=== PATIENT | female | born 1995 | race Hispanic/Latino ===

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

== ENCOUNTER 2017-07-11 16:35 | Outpatient (CLI) | payer OTHER ==
[~2017-07-11] VITALS: Ht 152.4 cm; Wt 70.9 kg
[2017-07-11] MEDS ORDERED: PRENTAB9 PO (17:17)
[2017-07-11 18:05] LABS: MEAN CORPUSCULAR HEMOGLOBIN 31.5 pg (27.0-33.0); MEAN CORPUSCULAR HGB CONC 35.3 g/dl (32.0-36.5); MEAN CORPUSCULAR VOLUME 89.4 fl (80.0-96.0); PLATELET COUNT, AUTOMATED 192 10^3/uL (150-450); RED CELL DISTRIBUTION WIDTH 12.7 % (11.5-14.5)
[2017-07-11 18:32] LABS: INR 0.93
== END 2017-07-11 19:15 | disposition home or self-care (01) ==
LOC: M LDO 16:35
PROVIDERS: ATTEND Obstetrics & Gynecology
DX: O26.893 Other specified pregnancy related conditions, third trimester (principal); W18.31XA Fall on same level due to stepping on an object, initial encounter; Z3A.37 37 weeks gestation of pregnancy

== ENCOUNTER 2017-07-15 20:34 | Outpatient (CLI) | payer OTHER ==
[~2017-07-15] VITALS: Ht 152.4 cm; Wt 73.0 kg
[~2017-07-15 20:34] MED LIST: PRENTAB9 PO
[2017-07-15 20:50] VITALS: BP 110/66
--- NOTE | 2017-07-17 08:02 | HPE ---
DATE OF ADMISSION: 07/15/2017 This lady is 22-year-old, 1, para 0, last menstrual period (LMP) 10/17/2016, date is uncertain. Expected date of confinement (EDC) by ultrasound was 07/28/2017. She is at 38 weeks with decreased movement. LABORATORIES: O positive. HIV negative. RPR negative. Rubella immune. Varicella was positive. Urine was negative. Gonorrhea and chlamydia negative. 1-hour glucose 106. Urine is 1.010, pH 7, 50 blood. Temperature is 98.9, blood pressure 110/66, respirations 18 and pulse 111. There is a symphysis fundus height of 38. Four quadrant bowel sounds are noted. Category one strip with accelerations. No vaginal loss. No discharge. The rest of the examination is unremarkable. She is normocephalic, atraumatic. Neck full range of motion. Pupils equal and reactive to light. Distal pulses symmetric. No evidence of deep vein thrombosis (DVT), pulmonary embolus (PE) or superficial phlebitis. Lungs are clear bilaterally to bases. No wheezes or rhonchi. No costovertebral angle (CVA) tenderness. No rashes, lesions or pruritus. No arthralgia or myalgia. No complaints of cough, wheeze, shortness of breath or dyspnea on exertion. No chest pain. Not bleeding. Neuro complete. No frequency. No nausea, vomiting, diarrhea or constipation. No diabetic issues. No WIDTH STRIPPER past history, medical or surgical interventions. She is . No domestic violence. No alcohol. No tobacco. No recreational drugs. In summary, we have a 38+ week of gestation who had decreased movement. Precautions were given. Has a category one strip. Discharged undelivered. Has an appointment on 07/25/2017.
== END 2017-07-15 22:25 | disposition home or self-care (01) ==
LOC: M LDO 20:34
PROVIDERS: ATTEND Obstetrics & Gynecology
DX: O36.8130 Decreased fetal movements, third trimester, not applicable or unspecified (principal); Z3A.38 38 weeks gestation of pregnancy

== ENCOUNTER 2017-07-18 20:05 | Outpatient (CLI) | payer OTHER ==
[~2017-07-18] VITALS: Ht 152.4 cm; Wt 71.6 kg
[2017-07-18 20:22] VITALS: BP 124/79
--- NOTE | 2017-07-19 13:52 | HPE ---
DATE OF ADMISSION: 07/18/2017 This is a 22-year-old 1, para 0, last period uncertain, September 2016, EDC by ultrasound 07/28/2017 at 39 weeks and 1 day. Complains of having rupture of membranes all day today. No contractions. Came in for evaluation. LABS: O+, HIV negative, RPR negative, rubella immune. Varicella positive. Urine was negative. Gonorrhea, chlamydia negative. 1-hour glucose 106. Today her urine is 10/10, pH 6 and +1 leukocytes. Blood pressure is 124/79, respirations are 14, pulse 79, temperature 98.5. She denies any symptoms of vaginal loss or bleeding on examination no acute distress. Symphysis fundus height is 39. Four quadrant bowel sounds are noted. Category 1 strip. Speculum examination show Nitrazine negative, fern negative, yeast negative, BV negative. Cervix is closed, posterior on digital examination, high and thick. The rest the examination is unremarkable. She is normocephalic, atraumatic. Neck: Full range of motions. Pupils equally reactive to light. Distal pulse symmetric. No evidence of DVT, PE or superficial phlebitis. Lungs are clear bilaterally to bases. No wheezes or rhonchi. No CVA tenderness. No rashes, lesions or pruritus. No arthralgia, myalgia. No complaints of cough, wheeze, shortness of breath or dyspnea on exertion. No chest pain. Not bleeding. Neuro complete. No frequency, nausea, vomiting, no diabetic issues. No past gynecological history or surgical intervention. She is . No domestic violence. No alcohol. No tobacco. No recreational drugs and she has good support at home. In summary we have a 39+ 1 week of gestation with category 1 strip. No evidence of ruptured membranes. Discharged to follow up with precautions and she has an appointment tomorrow morning with the [facility].
== END 2017-07-18 21:05 | disposition home or self-care (01) ==
LOC: M LDO 20:05
PROVIDERS: ATTEND Obstetrics & Gynecology
DX: O47.1 False labor at or after 37 completed weeks of gestation (principal); Z3A.39 39 weeks gestation of pregnancy

== ENCOUNTER 2017-07-22 19:37 | Inpatient (IN) | payer OTHER ==
[2017-07-22] MEDS ORDERED: LACTATED RINGER'S 1000 ML IV (22:30)
[2017-07-22] MEDS ORDERED: EPIDURAL COMMENT XX (22:30)
[2017-07-22] MEDS ORDERED: diphenhydrAMINE INJ 50MG/ML VIAL (J1200) IV (22:30)
[2017-07-22] MEDS ORDERED: EPIDURAL/PCA KEYS XX (22:30)
[2017-07-22] MEDS ORDERED: REFRIGERATOR IV KEYS XX (22:30)
[2017-07-22] MEDS ORDERED: NALOXONE INJ 0.4 MG/1 ML VIAL (J2310) IV (22:30)
[2017-07-22] MEDS ORDERED: FENTANYL/ROPIVACAINE/NACL BAG 200 ML EPIDURAL (22:30)
[2017-07-22] MEDS ORDERED: ePHEDrine SULFATE 25 MG/5 ML(5MG/ML) SYRINGE IV (22:30)
[2017-07-22] MEDS ORDERED: ONDANSETRON 4MG/2ML VIAL (J2405) IV (22:30)
[2017-07-22 22:54] LABS: HEMATOCRIT 39.1 % (36.0-47.0); HEMOGLOBIN 13.9 g/dl (12.0-16.0); MEAN CORPUSCULAR HEMOGLOBIN 31.4 pg (27.0-33.0); MEAN CORPUSCULAR HGB CONC 35.5 g/dl (32.0-36.5); MEAN CORPUSCULAR VOLUME 88.3 fl (80.0-96.0); PLATELET COUNT, AUTOMATED 209 10^3/uL (150-450); RED BLOOD COUNT 4.43 10^6/uL (4.00-5.40); RED CELL DISTRIBUTION WIDTH 12.5 % (11.5-14.5); WHITE BLOOD COUNT 15.2 10^3/uL (4.0-10.0)
[2017-07-22] MEDS ORDERED: FENTANYL 2MCG/ML ROPIVACAINE 0.2% IN 0.9% NACL 200ML IVBAG As Ordered (23:08)
[2017-07-22 23:10] LABS: AMPHETAMINES URINE REFLEX NEGATIVE (NEGATIVE); BARBITURATES URINE REFLEX NEGATIVE (NEGATIVE); BENZODIAZEPINES URINE REFLEX NEGATIVE (NEGATIVE); CANNABINOIDS URINE REFLEX NEGATIVE (NEGATIVE); COCAINE METABOLITE URINE REFLE NEGATIVE (NEGATIVE); METHADONE URINE REFLEX NEGATIVE (NEGATIVE); OPIATES URINE REFLEX NEGATIVE (NEGATIVE); PHENCYCLIDINE URINE REFLEX NEGATIVE (NEGATIVE)
[2017-07-22] MEDS: LACTATED RINGER'S 1000 ML IV (23:41)
[2017-07-22] MEDS: LR 1,000 ML IV (23:42)
[2017-07-22] MEDS ORDERED: OXYTOCIN 30 UNITS IN 0.9% NaCl 500ML IV BAG (J2590) As Ordered (23:57)
[2017-07-23] MEDS ORDERED: miSOPROStol 200 MCG TAB (S0191) As Ordered (03:12)
[2017-07-23 03:17] LABS: CORD GAS ABE A -7.2; CORD GAS HCO3 A 23.2 MEQ/L; CORD GAS O2 SAT A 55.5 %; CORD GAS PCO2 A 66.6 mmHg; CORD GAS PO2 A 28.6 mmHg; CORD GAS SBC A 17.7 MEQ/L; CORD GAS TCO2 A 25.3 MEQ/L
[2017-07-23 03:20] LABS: CORD GAS ABE V -3.8; CORD GAS HCO3 V 24.1 MEQ/L; CORD GAS O2 SAT V 34.7 %; CORD GAS PCO2 V 53.8 mmHg; CORD GAS PH V 7.269 UNITS; CORD GAS PO2 V 18.6 mmHg; CORD GAS SBC V 19.7 MEQ/L; CORD GAS TCO2 V 25.7 MEQ/L
[2017-07-23] MEDS ORDERED: miSOPROStol 200 MCG TAB (S0191) PO (04:15)
[2017-07-23] MEDS: OXYTOCIN DRIP 30 UNITS in APPROPRIATE DILUENT 1 EA IV (04:15)
[2017-07-23] MEDS ORDERED: ACETAMINOPHEN 500 MG TAB PO (04:15)
[2017-07-23] MEDS: miSOPROStol 200 MCG TAB (S0191) PR (04:30)
[2017-07-23] MEDS: IBUPROFEN 800 MG TAB PO ×2 (06:46→14:13)
[2017-07-23] MEDS: PRENATAL VITAMINS CHEWABLE TABLET PO (08:12)
[2017-07-23] MEDS: RHOGAM 300 MCG (1500 IU) INJ (J2790) IM (19:08)
[2017-07-23] MEDS: MEASLES,MUMPS,RUBELLA VACCINE INJ (MMR-II) (90707) SC (19:10)
[2017-07-23] MEDS: DOCUSATE SODIUM 100 MG CAP PO (19:46)
[2017-07-23] MEDS: DIBUCAINE 1% OINTMENT 30GM TOP (19:46)
[2017-07-24] MEDS: IBUPROFEN 800 MG TAB PO ×2 (03:34→19:39)
[2017-07-24] MEDS ORDERED: miSOPROStol 200 MCG TAB (S0191) As Ordered (10:22)
[2017-07-24] MEDS: PRENATAL VITAMINS CHEWABLE TABLET PO (11:28)
[2017-07-25] MEDS: PRENATAL VITAMINS CHEWABLE TABLET PO (09:08)
[2017-07-25] MEDS: DOCUSATE SODIUM 100 MG CAP PO (09:08)
[2017-07-25] MEDS: DIBUCAINE 1% OINTMENT 30GM TOP (09:09)
== END 2017-07-25 12:30 | disposition home or self-care (01) | DRG 775 ==
LOC: M LDO 19:37 → M OBS 07-23 06:06 → M LDI 22:59
PROC: 10E0XZZ Delivery of Products of Conception, External Approach (ICD-10-PCS; principal; 2017-07-23)
PROC: 0KQM0ZZ Repair Perineum Muscle, Open Approach (ICD-10-PCS; 2017-07-23)
DX: O66.0 Obstructed labor due to shoulder dystocia (principal); Z37.0 Single live birth; Z3A.39 39 weeks gestation of pregnancy; O76 Abnormality in fetal heart rate and rhythm complicating labor and delivery; O77.0 Labor and delivery complicated by meconium in amniotic fluid; O70.1 Second degree perineal laceration during delivery; O62.3 Precipitate labor

== ENCOUNTER 2018-01-11 18:37 | Emergency (ER) | payer OTHER ==
[2018-01-11] MEDS: ACETAMINOPHEN 325 MG TAB PO (19:19)
[2018-01-11] MEDS: ONDANSETRON 4 MG ORAL DISINTEGRATING TAB (Q0162 PER 1MG) PO (19:19)
[2018-01-11] MEDS: IBUPROFEN 600 MG TAB PO (19:20)
[2018-01-11] MEDS ORDERED: AUGMENTIN 875 MG TAB PO (20:00)
[2018-01-11] MEDS: CLINDAMYCIN 150 MG CAP PO (20:30)
== END 2018-01-11 20:58 | disposition home or self-care (01) ==
LOC: M ED 18:37
DX: N61.0 Mastitis without abscess (principal); R50.9 Fever, unspecified; F32.9 Major depressive disorder, single episode, unspecified; Z87.891 Personal history of nicotine dependence
CPT/HCPCS: Q0162

== ENCOUNTER 2018-02-19 14:34 | Emergency (ER) | payer OTHER ==
[2018-02-19 16:33] LABS: CARBOXYHEMOGLOBIN 1.6 % (0.0-1.5)
[2018-02-19 16:54] LABS: BASO # 0.1 10^3/uL (0.0-0.2); BASO % 0.7 % (0.0-1.0); EOS # 0.2 10^3/uL (0.0-0.50); EOS % 1.8 % (0.0-3.0); HEMATOCRIT 38.8 % (36.0-47.0); HEMOGLOBIN 13.3 g/dl (12.0-15.5); IMMATURE GRANULOCYTE % 0.3 % (0-3.0); LYMPH # 2.1 10^3/uL (1.5-6.5); LYMPH % 21.3 % (24.0-44.0); MEAN CORPUSCULAR HEMOGLOBIN 30.8 pg (27.0-33.0); MEAN CORPUSCULAR HGB CONC 34.3 g/dl (32.0-36.5); MEAN CORPUSCULAR VOLUME 89.8 fl (80.0-96.0); MONO # 0.5 10^3/uL (0.0-0.8); MONO % 5.1 % (0.0-5.0); NEUTROPHILS # 7.1 10^3/uL (1.8-7.7); NEUTROPHILS % 70.8 % (36.0-66.0); PLATELET COUNT, AUTOMATED 228 10^3/uL (150-450); RED BLOOD COUNT 4.32 10^6/uL (4.00-5.40); RED CELL DISTRIBUTION WIDTH 12.2 % (11.5-14.5)
[2018-02-19 17:05] LABS: ANION GAP 9 MEQ/L (8-16); BLOOD UREA NITROGEN 15 MG/DL (7-18); CALCIUM LEVEL 8.8 MG/DL (8.5-10.1); CARBON DIOXIDE LEVEL 25 MEQ/L (21-32); CHLORIDE LEVEL 109 MEQ/L (98-107); CPK CREATINE PHOSPHOKINASE 125 U/L (26-192); CREATININE FOR GFR 0.89 MG/DL (0.55-1.30); GLUCOSE, FASTING 87 MG/DL (70-100); POTASSIUM SERUM 4.3 MEQ/L (3.5-5.1); SODIUM LEVEL 143 MEQ/L (136-145); TROPONIN I 0.02 NG/ML (< 0.10)
[2018-02-19 17:05] LABS: LACTIC ACID SEPSIS PROTOCOL 0.7 MMOL/L (0.4-2.0)
== END 2018-02-19 17:56 | disposition home or self-care (01) ==
LOC: M ED 14:34
DX: T58.01XA Toxic effect of carbon monoxide from motor vehicle exhaust, accidental (unintentional), initial encounter (principal); R11.2 Nausea with vomiting, unspecified; R51 Headache; H57.13 Ocular pain, bilateral; R42 Dizziness and giddiness; M62.838 Other muscle spasm; F32.9 Major depressive disorder, single episode, unspecified
CPT/HCPCS: 82550